=== PATIENT | female | born 1955 | race Caucasian/White ===

== ENCOUNTER 2024-06-08 15:09 | Observation (INO) | payer MEDICARE ==
[2024-06-08 15:42] LABS: Absolute Neutrophil Ct (ANC) 5.22 x10^3/uL (1.56-6.13); BASOPHIL % 0.7 % (0.1-1.2); Basophil (Absolute #) 0.06 x10^3/uL (0.01-0.08); Eosinophil % 4.4 % (0.7-5.8); Hematocrit 41.1 % (34.1-44.9); Hemoglobin 13.5 g/dL (11.2-15.7); IMMATURE GRAN # 0.02 x10^3u/L (0.001-0.031); IMMATURE GRAN % 0.2 % (0.001-0.429); Lymphocytes % 30.5 % (19.3-51.7); Mean Cell Volume 92.4 fL (79.4-94.8); Mean Corpuscular Hemoglobin 30.3 pg (25.6-32.2); Mean Corpuscular Hgb Concent. 32.8 g/dL (32.2-35.5); Mean Platelet Volume 10.1 fL (9.4-12.3); Monocyte (Absolute #) 0.67 x10^3/uL (0.24-0.86); Monocytes % 7.3 % (4.7-12.5); Neutrophil % 56.9 % (34.0-71.1); Platelet Count 252 x10^3/uL (182-369); Red Blood Count 4.45 x10^6/uL (3.93-5.22); Red Cell Distribution Width 12.3 % (11.7-14.4); White Blood Count 9.2 x10^3/uL (3.98-10.04)
[2024-06-08 16:11] LABS: ALBUMIN 4.1 g/dL (3.5-5.0); ANION GAP 15.1 MEQ/L (5-15); BILIRUBIN,TOTAL 0.5 mg/dL (0.2-1.3); Calcium 9.4 mg/dL (8.4-10.2); Creatinine 1 0.96 mg/dL (0.52-1.04); EST GLOMERULAR FILTRATION RATE 63.7 ML/MIN; NT PRO BNPII 90.4 pg/mL (<300); Potassium 4.1 mmol/L (3.5-5.1); Total Protein 6.9 g/dL (6.3-8.2)
--- NOTE | 2024-06-08 16:25 | XRAY ---
Indication: Chest pain. Comparison: None Portable chest hyperinflated with minimal left base subsegmental atelectasis/scarring. Remaining lungs clear. Heart not enlarged with tortuous descending aorta. Bony thorax intact with osteopenia, mild degenerative changes, and old right humeral neck fracture. Impression: Nonacute chest with chronic features.
--- NOTE | 2024-06-08 17:50 | ERPHSYRPT ---
- History of Present Illness Time Seen by Provider: 06/08/24 15:12 Historian: patient, EMS, [facility] records Exam Limitations: no limitations Patient Subjective Stated Complaint: Pt c/o of left sided chest pain that radiated down her left arm with N&V and diaphoresis Triage Nursing Assessment: fPt brought to the ER by EMS, vitals wnl, rates chest pain as 5/10, pulses normal, skin n/w/d, fills mildly short of breath, chest pain better with nitro and aspirin, doesn't appear to be in any distress Physician History: 68 years old female resident of [facility] with history of Parkinson's disease, hypertension, hyperlipidemia, hypothyroidism, diabetes mellitus presented in the ER with complains of substernal/left-sided chest pain since morning. Patient reported it was 8/10 intensity earlier, was given aspirin and nitro by EMS and started to improve. Currently having minimal pain. Patient denies any difficulty breathing. No fever or chills reported. Denies any history of previous stenting. Denies any lower extremity swellings Allergies/Adverse Reactions: Sulfa (Sulfonamide Antibiotics) Allergy (Verified 06/08/24 15:15) Home Medications: Amlodipine Besylate 5 mg [Norvasc 5 mg] 5 mg PO DAILY 06/08/24 [History] Aspirin 81 mg PO DAILY 06/08/24 [History] Atorvastatin Calcium 40 mg PO DAILY 06/08/24 [History] Carbidopa/Levodopa [Carbidopa-Levo ER 25-100 Tab] 2 tab PO TID 06/08/24 [History] Carvedilol 3.125 mg [Coreg 3.125 MG] 3.125 mg PO BID 06/08/24 [History] Cholecalciferol (Vitamin D3) [Vitamin D3] 125 mcg PO DAILY 06/08/24 [History] Cyanocobalamin 500 Mcg [Vitamin B-12 500 MCG] 1,000 mcg PO DAILY 06/08/24 [History] Diclofenac Sodium [Diclofenac Sodium ER] 100 mg PO DAILY 06/08/24 [History] Diphenhydramine HCl [Allergy Medication] 25 mg PO DAILY 06/08/24 [History] Docusate Sodium 100 mg [Docusate Sodium 100 MG] 100 mg PO BID 06/08/24 [History] Escitalopram Oxalate [Lexapro] 10 mg PO DAILY 06/08/24 [History] Fluticasone Propion/Salmeterol [Fluticasone-Salmeterol 250-50] 1 inh PO DAILY 06/08/24 [History] Insulin Glargine [Lantus Insulin] 17 unit SQ HS 06/08/24 [History] Insulin Lispro [Admelog Solostar] 0 units SQ AC 06/08/24 [History] Insulin Lispro [Admelog Solostar] 5 units SQ AC 06/08/24 [History] Levothyroxine Sodium 100 Mcg [Synthroid 100 Mcg] 100 mcg PO DAILY 06/08/24 [History] Losartan Potassium 100 mg PO DAILY 06/08/24 [History] Melatonin 3 mg PO HS 06/08/24 [History] Memantine HCl 5 mg PO DAILY 06/08/24 [History] Nystatin Powder 15 gm [Nystop Powder 15 gm] 0 gm TOP BID 06/08/24 [History] Oxaprozin 600 mg PO UD 06/08/24 [History] PANTOPRAZOLE 40 mg Tablet [Protonix 40MG Tablet] 40 mg PO QAM 06/08/24 [History] Vibegron [Gemtesa] 75 mg PO DAILY 06/08/24 [History] Hx Influenza Vaccination/Date Given: Yes Hx Pneumococcal Vaccination/Date Given: Yes Travel Risk - International Travel Have you traveled outside of the country in past 3 weeks: No - Emerging Infectious Disease Are you exhibiting symptoms associated with any current EIDs: No - Review of Systems Constitutional: No Symptoms Ears, Nose, & Throat: No Symptoms Respiratory: No Symptoms Cardiac: Chest Pain Abdominal/Gastrointestinal: No Symptoms Musculoskeletal: Arthralgias Skin: No Symptoms Neurological: No Symptoms Hematologic/Lymphatic: No Symptoms Immunological/Allergic: No Symptoms - Past Medical History Pertinent Past Medical History: Yes Cardiac History: High Cholesterol Endocrine Medical History: Diabetes Type II, Hypothyroidism GI Medical History: GERD Psycho-Social History: Anxiety Other Medical History: PARKINSONS - Past Surgical History Past Surgical History: Yes Gastrointestinal: Cholecystectomy Female Surgical History: Section - Social History Smoking Status: Former smoker Exposure to second hand smoke: No Drug Use: none - Social Determinants of Health Will the patient participate in the screening: Yes Do you worry about a steady place to live?: No Do you have any problems with any of the following?: No known problems In the past 12 months,have you had to go without utilities?: No Transportation Issues: No Has anyone in your support network made you feel unsafe?: No Have you or anyone in your house had to go w/o enough food: No - Nursing Vital Signs Nursing Vital Signs: Initial Vital Signs Temperature 98.3 F 06/08/24 15:18 Pulse Rate 70 06/08/24 15:18 Respiratory Rate 17 06/08/24 15:18 Blood Pressure 132/80 06/08/24 15:18 O2 Sat by Pulse Oximetry 95 06/08/24 15:18 Pain Scale Pain Intensity 0 - Physical Exam General Appearance: no apparent distress Eye Exam: PERRL/EOMI Ears, Nose, Throat Exam: normal ENT inspection Neck Exam: normal inspection, full range of motion Respiratory Exam: normal breath sounds, lungs clear Cardiovascular Exam: regular rate/rhythm, normal heart sounds Gastrointestinal/Abdomen Exam: soft, normal bowel sounds, No tenderness Extremity Exam: normal inspection, normal range of motion Neurologic Exam: alert, oriented x 3, cooperative Skin Exam: normal color SpO2 Interpretation: normal SpO2: 96 O2 Delivery: Room Air Ordered Tests: Active Orders 24 hr Category Date Time Status Patrol Inspector STAT Care 06/08/24 15:22 Active EKG-ER Only STAT Care 06/08/24 15:21 Active IV Insertion STAT Care 06/08/24 15:21 Active Pulse Oximetry (ED) STAT Care 06/08/24 15:21 Active CHEST 1 VIEW (PORTABLE) Stat Exams 06/08/24 15:21 Completed CBC W DIFF Stat Lab 06/08/24 15:42 Completed CMP Stat Lab 06/08/24 15:42 Completed NT PRO BNPII Stat Lab 06/08/24 15:42 Completed TROPONIN Q4H Lab 06/08/24 15:42 Completed TROPONIN Q4H Lab 06/08/24 19:30 Ordered TROPONIN Q4H Lab 06/08/24 23:30 Ordered Transfer Order Routine Transfer 06/08/24 Ordered Lab/Rad Data: Laboratory Result Diagrams 06/08/24 15:42 06/08/24 15:42 Laboratory Results 02/20/25 02/20/25 02/20/25 Range/Units 15:42 15:42 15:42 WBC 9.2 (3.98-10.04) x10^3/uL RBC 4.45 (3.93-5.22) x10^6/uL Hgb 13.5 (11.2-15.7) g/dL Hct 41.1 (34.1-44.9) % MCV 92.4 (79.4-94.8) fL MCH 30.3 (25.6-32.2) pg MCHC 32.8 (32.2-35.5) g/dL RDW 12.3 (11.7-14.4) % Plt Count 252 (182-369) x10^3/uL MPV 10.1 (9.4-12.3) fL Gran % 56.9 (34.0-71.1) % Immature Gran % (Auto) 0.2 (0.001-0.429) % Nucleat RBC Rel Count 0.0 (0.00-0.2) % Eos # (Auto) 0.40 H (0.04-0.36) x10^3/uL Immature Gran # (Auto) 0.02 (0.001-0.031) x10^3u/L Absolute Lymphs (auto) 2.80 (1.18-3.74) x10^3/uL Absolute Monos (auto) 0.67 (0.24-0.86) x10^3/uL Absolute Nucleated RBC 0.00 (0.00-0.012) x10^3u/L Lymphocytes % 30.5 (19.3-51.7) % Monocytes % 7.3 (4.7-12.5) % Eosinophils % 4.4 (0.7-5.8) % Basophils % 0.7 (0.1-1.2) % Absolute Granulocytes 5.22 (1.56-6.13) x10^3/uL Basophils # 0.06 (0.01-0.08) x10^3/uL Sodium 142 (135-145) mmol/L Potassium 4.1 (3.5-5.1) mmol/L Chloride 104 (98-107) mmol/L Carbon Dioxide 27 (22-30) mmol/L Anion Gap 15.1 H (5-15) MEQ/L BUN 18 H (7-17) mg/dL Creatinine 0.96 (0.52-1.04) mg/dL Estimated GFR 63.7 ML/MIN Glucose 138 H (74-106) mg/dL Calcium 9.4 (8.4-10.2) mg/dL Total Bilirubin 0.50 (0.2-1.3) mg/dL AST 21 (14-36) U/L ALT 8 (0-35) U/L Alkaline Phosphatase 71 (38-126) U/L Troponin I < 0.012 (0.000-0.033) ng/mL NT-Pro-B Natriuret Pep 90.4 (<300) pg/mL Serum Total Protein 6.9 (6.3-8.2) g/dL Albumin 4.1 (3.5-5.0) g/dL - Progress Progress: improved Air Movement: good Progress Note: 06/08/24 17:49 68 years old is evaluated in the ER for substernal/left-sided chest pain which is better after nitro and aspirin. EKG is no acute ischemic changes. Initial troponins are negative. Chest x-ray negative for any acute cardiopulmonary findings. Normal white count and fairly unremarkable chemistries. Patient has no cardiac workup done in the recent past, has multiple risk factors for CAD, discussed with Dr. Barrios and patient is being admitted. I have shared the results of workup with patient and recommended observation admission which she agreed. Complexity of problems addressed: High Amount/complexity of data to be reviewed and analyzed: Moderate. Risk of complication morbidity or mortality of patient management: High risk. Blood Culture(s) Obtained: No Antibiotics given: No Discussed with Dr.: Other (Dr. Barrios) Will see patient in: hospital (observation) Counseled pt/family regarding: lab results, diagnosis, need for follow-up, rad results Medical Desision Making - Independent Historian Additional History obtained from: Prison nurse, Hand Clerical Verifier/EMT - Discussion of managment Care discussed with:: hospitalist (Dr. Barrios) Reviewed:: Test results Agreed on:: Treatment plan, place in obs Will see patient: in hospital - Diagnostic Testing Diagnostic test were ordered, analyzed, and reviewed by me: Yes Radiological Interpretation: Reviewed by me - Risk of complications The pt has a mod risk of morbidity or mortality based on: Need for prescription drug management The pt has a high risk of morbidity or mortality based on: Decision regarding hospitilization or escalation of hosp level of care - Departure Departure Disposition: Home Clinical Impression: Chest pain, rule out acute myocardial infarction Condition: Stable Critical Care Time: No Referrals: SAILAJA CABRERA, [Primary Care Provider] - Follow up/PCP as directed
[2024-06-08] MEDS ORDERED: TYLENOL 325 MG PO PRN (20:01)
[2024-06-08] MEDS ORDERED: HUMALOG SQ PRN (20:01)
[2024-06-08] MEDS ORDERED: Nitrostat 0.4 MG Tablet SL PRN (20:28)
--- NOTE | 2024-06-08 20:37 | PCM.HP ---
History of Present Illness - Chief Complaint Chief Complaint: chest pain Date: 06/08/24 History of Present Illness: 68-year-old woman with a history of hypertension, diabetes, COPD, hypothyroidism, and Parkinson disease, who presents with chest tightness. Patient describes 1 week of episodes of substernal chest heaviness, radiating to the left side, associated with nausea and dyspnea, lasting about 30 minutes, moderate in intensity, provoked by stress. Usually resolve spontaneously or with rest. No change with exertion. No associated diaphoresis or numbness. The episodes have been occurring about 2-3 times per day, but earlier today she had a very stressful discussion with a family member causing her a lot of anxiety, and she began to have more frequent episodes. As such, she came to the ED today. On arrival, she initially was having some of this chest heaviness, but it resolved spontaneously, and she is symptom-free currently. Denies any prior episodes of similar chest pain or any cardiac disease history. She notes she had a cardiac catheterization many years ago that did not find anything, but she does not recall what prompted them to do the heart cath in the first place. She is a non-smoker. She has a family history in both parents of coronary disease, but at an advanced age. - Review of Systems All Other Systems: Reviewed and Negative Medications & Allergies Home Medications: Home Medication List Amlodipine Besylate 5 mg [Norvasc 5 mg] 5 mg PO DAILY 06/08/24 [History Confirmed 06/08/24] Aspirin 81 mg PO DAILY 06/08/24 [History Confirmed 06/08/24] Atorvastatin Calcium 40 mg PO DAILY 06/08/24 [History Confirmed 06/08/24] Carbidopa/Levodopa [Carbidopa-Levo ER 25-100 Tab] 2 tab PO TID 06/08/24 [History Confirmed 06/08/24] Carvedilol 3.125 mg [Coreg 3.125 MG] 3.125 mg PO BID 06/08/24 [History Confirmed 06/08/24] Cholecalciferol (Vitamin D3) [Vitamin D3] 125 mcg PO DAILY 06/08/24 [History Confirmed 06/08/24] Cyanocobalamin 500 Mcg [Vitamin B-12 500 MCG] 1,000 mcg PO DAILY 06/08/24 [History Confirmed 06/08/24] Diclofenac Sodium [Diclofenac Sodium ER] 100 mg PO DAILY 06/08/24 [History Confirmed 06/08/24] Diphenhydramine HCl [Allergy Medication] 25 mg PO DAILY 06/08/24 [History Confirmed 06/08/24] Docusate Sodium 100 mg [Docusate Sodium 100 MG] 100 mg PO BID 06/08/24 [History Confirmed 06/08/24] Escitalopram Oxalate [Lexapro] 10 mg PO DAILY 06/08/24 [History Confirmed 06/08/24] Fluticasone Propion/Salmeterol [Fluticasone-Salmeterol 250-50] 1 inh PO DAILY 06/08/24 [History Confirmed 06/08/24] Insulin Glargine [Lantus Insulin] 17 unit SQ HS 06/08/24 [History Confirmed 06/08/24] Insulin Lispro [Admelog Solostar] 0 units SQ AC 06/08/24 [History Confirmed 06/08/24] Insulin Lispro [Admelog Solostar] 5 units SQ AC 06/08/24 [History Confirmed 06/08/24] Levothyroxine Sodium 100 Mcg [Synthroid 100 Mcg] 100 mcg PO DAILY 06/08/24 [History Confirmed 06/08/24] Losartan Potassium 100 mg PO DAILY 06/08/24 [History Confirmed 06/08/24] Melatonin 3 mg PO HS 06/08/24 [History Confirmed 06/08/24] Memantine HCl 5 mg PO DAILY 06/08/24 [History Confirmed 06/08/24] Nystatin Powder 15 gm [Nystop Powder 15 gm] 0 gm TOP BID 06/08/24 [History Confirmed 06/08/24] Oxaprozin 600 mg PO UD 06/08/24 [History Confirmed 06/08/24] PANTOPRAZOLE 40 mg Tablet [Protonix 40MG Tablet] 40 mg PO QAM 06/08/24 [History Confirmed 06/08/24] Vibegron [Gemtesa] 75 mg PO DAILY 06/08/24 [History Confirmed 06/08/24] Allergies/Adverse Reactions: Allergies Allergy/AdvReac Type Severity Reaction Status Date / Time Sulfa (Sulfonamide Allergy Verified 06/08/24 15:15 Antibiotics) - Past Medical History Past Medical History: Yes Cardiac History: High Cholesterol, Hypertension Endocrine Medical History: Diabetes Type II, Hypothyroidism GI Medical History: GERD Pyscho-Social History: Anxiety Comment: PARKINSONS - Past Surgical History Past Surgical History: Yes GI Surgical History: Cholecystectomy Female Surgical History: Section Significant Family History: heart disease (at advanced age, in both parents) - Social History Smoking Status: Former smoker Exposure to second hand smoke: No Alcohol: Occasionally Drug Use: none - Social Determinants of Health Will the patient participate in the screening: Yes Do you worry about a steady place to live?: No Do you have any problems with any of the following?: No known problems In the past 12 months,have you had to go without utilities?: No Have you or anyone in your house had to go without enough: No Transportation Issues: No Has anyone in your support network made you feel unsafe?: No - Physical Exam Vital Signs: Vital Signs - 24 hr Temp Pulse Resp BP BP Pulse Ox 06/08/24 20:00 97.7 F 68 18 159/83 94 L 06/08/24 19:15 69 16 166/95 94 L 06/08/24 19:00 71 14 170/122 96 06/08/24 18:45 75 19 171/105 94 L 06/08/24 18:30 73 18 148/100 92 L 06/08/24 18:15 73 17 156/94 93 L 06/08/24 18:08 96 06/08/24 18:00 72 18 159/95 93 L 06/08/24 17:45 70 15 152/93 93 L 06/08/24 17:30 74 20 172/92 93 L 06/08/24 17:15 72 14 145/88 96 06/08/24 17:00 68 14 145/90 93 L 06/08/24 16:45 72 14 150/94 93 L 06/08/24 16:30 75 19 148/95 95 06/08/24 16:15 77 18 149/89 94 L 06/08/24 16:00 76 17 152/91 95 06/08/24 15:25 94 L 06/08/24 15:18 98.3 F 70 17 132/80 95 Physical Exam GEN: Sitting up in bed in no acute distress. HENT: Normocephalic, atraumatic. Moist mucous membranes. EYES: Normal inspection, anicteric sclera, extraocular movements intact. NECK: Supple, full range of motion CV: Regular rate and rhythm, no murmurs, no gallops. No JVD or edema. PULM: Clear to auscultation bilaterally, no work of breathing. On room air. ABD: Nondistended, nontender. MSK: No joint effusions, full range of motion SKIN: No rashes, normal color. NEURO: Face symmetric, no focal motor or sensory deficits. PSYCH: Alert, oriented x 3 Results - Labs Lab/Micro Results: Lab Results-Last 24 Hours 06/08/24 06/08/24 06/08/24 Range/Units 15:42 15:42 15:42 WBC 9.2 (3.98-10.04) x10^3/uL RBC 4.45 (3.93-5.22) x10^6/uL Hgb 13.5 (11.2-15.7) g/dL Hct 41.1 (34.1-44.9) % MCV 92.4 (79.4-94.8) fL MCH 30.3 (25.6-32.2) pg MCHC 32.8 (32.2-35.5) g/dL RDW 12.3 (11.7-14.4) % Plt Count 252 (182-369) x10^3/uL MPV 10.1 (9.4-12.3) fL Gran % 56.9 (34.0-71.1) % Immature Gran % (Auto) 0.2 (0.001-0.429) % Nucleat RBC Rel Count 0.0 (0.00-0.2) % Eos # (Auto) 0.40 H (0.04-0.36) x10^3/uL Immature Gran # (Auto) 0.02 (0.001-0.031) x10^3u/L Absolute Lymphs (auto) 2.80 (1.18-3.74) x10^3/uL Absolute Monos (auto) 0.67 (0.24-0.86) x10^3/uL Absolute Nucleated RBC 0.00 (0.00-0.012) x10^3u/L Lymphocytes % 30.5 (19.3-51.7) % Monocytes % 7.3 (4.7-12.5) % Eosinophils % 4.4 (0.7-5.8) % Basophils % 0.7 (0.1-1.2) % Absolute Granulocytes 5.22 (1.56-6.13) x10^3/uL Basophils # 0.06 (0.01-0.08) x10^3/uL Sodium 142 (135-145) mmol/L Potassium 4.1 (3.5-5.1) mmol/L Chloride 104 (98-107) mmol/L Carbon Dioxide 27 (22-30) mmol/L Anion Gap 15.1 H (5-15) MEQ/L BUN 18 H (7-17) mg/dL Creatinine 0.96 (0.52-1.04) mg/dL Estimated GFR 63.7 ML/MIN Glucose 138 H (74-106) mg/dL Calcium 9.4 (8.4-10.2) mg/dL Total Bilirubin 0.50 (0.2-1.3) mg/dL AST 21 (14-36) U/L ALT 8 (0-35) U/L Alkaline Phosphatase 71 (38-126) U/L Troponin I < 0.012 (0.000-0.033) ng/mL NT-Pro-B Natriuret Pep 90.4 (<300) pg/mL Serum Total Protein 6.9 (6.3-8.2) g/dL Albumin 4.1 (3.5-5.0) g/dL 06/08/24 Range/Units 19:30 WBC (3.98-10.04) x10^3/uL RBC (3.93-5.22) x10^6/uL Hgb (11.2-15.7) g/dL Hct (34.1-44.9) % MCV (79.4-94.8) fL MCH (25.6-32.2) pg MCHC (32.2-35.5) g/dL RDW (11.7-14.4) % Plt Count (182-369) x10^3/uL MPV (9.4-12.3) fL Gran % (34.0-71.1) % Immature Gran % (Auto) (0.001-0.429) % Nucleat RBC Rel Count (0.00-0.2) % Eos # (Auto) (0.04-0.36) x10^3/uL Immature Gran # (Auto) (0.001-0.031) x10^3u/L Absolute Lymphs (auto) (1.18-3.74) x10^3/uL Absolute Monos (auto) (0.24-0.86) x10^3/uL Absolute Nucleated RBC (0.00-0.012) x10^3u/L Lymphocytes % (19.3-51.7) % Monocytes % (4.7-12.5) % Eosinophils % (0.7-5.8) % Basophils % (0.1-1.2) % Absolute Granulocytes (1.56-6.13) x10^3/uL Basophils # (0.01-0.08) x10^3/uL Sodium (135-145) mmol/L Potassium (3.5-5.1) mmol/L Chloride (98-107) mmol/L Carbon Dioxide (22-30) mmol/L Anion Gap (5-15) MEQ/L BUN (7-17) mg/dL Creatinine (0.52-1.04) mg/dL Estimated GFR ML/MIN Glucose (74-106) mg/dL Calcium (8.4-10.2) mg/dL Total Bilirubin (0.2-1.3) mg/dL AST (14-36) U/L ALT (0-35) U/L Alkaline Phosphatase (38-126) U/L Troponin I < 0.012 (0.000-0.033) ng/mL NT-Pro-B Natriuret Pep (<300) pg/mL Serum Total Protein (6.3-8.2) g/dL Albumin (3.5-5.0) g/dL - Radiology Impressions Radiology Exams & Impressions: Radiology Procedures Category Date Time Status CHEST 1 VIEW (PORTABLE) Stat Exams 06/08/24 15:21 Completed Chest x-ray no acute process, does have some mild scarring versus atelectasis at the left base. (Images reviewed) Assessment/Plan (1) Chest pain, rule out acute myocardial infarction Current Visit: Yes Status: Acute Assessment & Plan: 68-year-old woman with a history of diabetes, hypertension, COPD, hypothyroidism , and Parkinson disease, here with episodic chest heaviness. ## Substernal chest pain atypical, as not provoked by exertion or relieved by rest. However, has been increasing in frequency over the last week, and is at least worsened by emotional stress. Initial EKG and troponins are unrevealing. Patient's risk factors are mainly her comorbidities as well as advanced age. Place in observation and monitor on telemetry overnight Serial troponins PRN nitroglycerin If troponins remain negative and no further telemetry, will arrange for outpatient stress testing Continue home aspirin 81 mg, atorvastatin 40 ## Type 2 diabetes on insulin at home. Continue home Lantus 17 units QHS and lispro 5 units AC Placed on moderate dose sliding scale insulin Check hemoglobin A1c ## Hypertension blood pressure elevated, but in the setting of acute pain. Resume home regimen of carvedilol 3.125 BID, amlodipine 5 daily, and losartan 100 mg daily Will need to follow-up with PCP for repeat ambulatory blood pressure evaluation to see if an increase in dosing would be warranted when patient is in her baseline state ## Chronic stable problems Hypothyroidism continue home levothyroxine 100 mcg daily Parkinson disease continue home Sinemet 2 tabs TID Dementia continue memantine 5 mg daily Overactive bladder continue home oxaprozin 600 mg daily GERD continue home Protonix 40 mg daily Insomnia continue melatonin 3 mg QHS Anxiety continue Lexapro 10 mg daily CODE STATUS: Full code Diet: Diabetic Prophylaxis: Low risk, short observation stay patient, encourage ambulation Dispo: Place in observation, expect discharge to home tomorrow Entirety of encounter took place via live audio/video telemedicine device, with remote physician and patient in hospital, with the assistance of bedside nurse. Code(s): R07.9 - CHEST PAIN, UNSPECIFIED Telemedicine Encounter - Telemedicine Encounter Telemedicine Encounter: "The entirety of this encounter was performed via Telemedicine" This visit was performed using real-time audio and video connection between my location and thepatients locationwith the assistance of a surrogateat the patients location. Written or verbal consent was obtained from the patient/guardian to perform [facility]. Any patient questions regarding the telemedicine interaction were answered.
[2024-06-08] MEDS ORDERED: NON-FORMULARY ITEM (Carbidopa/Levodopa [Carbidopa-Levo Er 25-100 Tab] 1 EACH Tablet.Er) PO SCH (22:00)
[2024-06-08] MEDS: Advair Hfa 115/21 Common canister IH SCH (22:22)
[2024-06-08] MEDS: Lantus Insulin SQ SCH (22:53)
[2024-06-08] MEDS: Docusate Sodium 100 MG PO SCH (22:54)
[2024-06-08] MEDS: Coreg 3.125 MG PO SCH (22:54)
[2024-06-08] MEDS: Sinemet CR 50/200 MG PO SCH (22:54)
[2024-06-08] MEDS: MELATONIN PO SCH (22:54)
[2024-06-08 23:51] LABS: PREALBUMIN 20.84 mg/dL (17.6-36.0); TROPONIN < 0.012 ng/mL (0.000-0.033)
[2024-06-09 05:01] LABS: Hematocrit 40.8 % (34.1-44.9); Hemoglobin 13.4 g/dL (11.2-15.7); Mean Cell Volume 92.9 fL (79.4-94.8); Mean Corpuscular Hemoglobin 30.5 pg (25.6-32.2); Mean Corpuscular Hgb Concent. 32.8 g/dL (32.2-35.5); Mean Platelet Volume 10.1 fL (9.4-12.3); Platelet Count 239 x10^3/uL (182-369); Red Blood Count 4.39 x10^6/uL (3.93-5.22); Red Cell Distribution Width 12.4 % (11.7-14.4); White Blood Count 9.3 x10^3/uL (3.98-10.04)
[2024-06-09 05:37] LABS: ANION GAP 15.9 MEQ/L (5-15); Creatinine 1 0.69 mg/dL (0.52-1.04); EST GLOMERULAR FILTRATION RATE 93.3 ML/MIN
[2024-06-09] MEDS ORDERED: MEDICATION INTERVENTION MC SCH (07:00)
[2024-06-09] MEDS ORDERED: NON-FORMULARY ITEM (Insulin Lispro [Admelog Solostar] 100 UNIT/ML Insuln.Pen) SQ SCH (07:30)
[2024-06-09 08:37] VITALS: RESP 18; O2SAT 93
[2024-06-09] MEDS: VITAMIN D PO SCH (09:38)
[2024-06-09] MEDS: ECOTRIN 81 MG PO SCH (09:38)
[2024-06-09] MEDS: SYNTHROID 100 MCG PO SCH (09:38)
[2024-06-09] MEDS: Lexapro PO SCH (09:38)
[2024-06-09] MEDS: Cozaar 50 MG PO SCH (09:38)
[2024-06-09] MEDS: ZOCOR 20MG PO SCH (09:38)
[2024-06-09] MEDS: Namenda 5 MG PO SCH (09:39)
[2024-06-09] MEDS: NORVASC 5 MG PO SCH (09:39)
[2024-06-09] MEDS: Protonix 40MG Tablet PO SCH (09:39)
[2024-06-09] MEDS: HUMALOG SQ SCH (09:39)
[2024-06-09] MEDS: VOLTAREN 50 MG PO SCH (09:40)
--- NOTE | 2024-06-09 09:47 | PCM.DS ---
Discharge Summary Date of Admission: 06/08/24 19:58 Date of Discharge: 06/09/24 Admitting Physician: BECKI DE LA ROSA MD Primary Care Provider: SAILAJA CABRERA DO Allergies Allergies Sulfa (Sulfonamide Antibiotics) Allergy (Verified 06/08/24 15:15) Hospital Summary - Hospital Course Hospital Course: 68-year-old woman with a history of hypertension, diabetes, COPD, hypothyroidism, and Parkinson disease, who presents with chest tightness. Patient describes 1 week of episodes of substernal chest heaviness, radiating to the left side, associated with nausea and dyspnea, lasting about 30 minutes, moderate in intensity, provoked by stress. Usually resolve spontaneously or with rest. No change with exertion. No associated diaphoresis or numbness. The episodes have been occurring about 2-3 times per day, but on 06/08/24 she had a very stressful discussion with a family member causing her a lot of anxiety, and she began to have more frequent episodes. As such, she came to the ED. On arrival, she initially was having some of this chest heaviness, but it resolved spontaneously, and she is symptom-free currently. Denies any prior episodes of similar chest pain or any cardiac disease history. She notes she had a cardiac catheterization many years ago that did not find anything, but she does not recall what prompted them to do the heart cath in the first place. She is a non- smoker. She has a family history in both parents of coronary disease, but at an advanced age. Today she denies any CP. Trop X3 negative. Will have pt f/u OP with cardiology. She denies any further concerns at this time and will return to [facility]. - Vitals & Intake/Output Vital Signs: Vital Signs Temperature 97.5 F 06/09/24 08:00 Pulse Rate 72 06/09/24 08:00 Respiratory Rate 18 06/09/24 08:00 Blood Pressure 152/83 06/09/24 08:00 O2 Sat by Pulse Oximetry 93 L 06/09/24 08:00 Intake & Output: Intake & Output 06/06/24 06/07/24 06/08/24 06/09/24 11:59 11:59 11:59 11:59 Intake Total 600 Balance 600 Weight 70 kg - Lab Result Diagrams: 06/09/24 04:56 06/09/24 04:56 Lab Results-Last 24 Hrs: Lab Results-Last 24 Hours 06/08/24 06/08/24 06/08/24 Range/Units 15:42 15:42 15:42 WBC 9.2 (3.98-10.04) x10^3/uL RBC 4.45 (3.93-5.22) x10^6/uL Hgb 13.5 (11.2-15.7) g/dL Hct 41.1 (34.1-44.9) % MCV 92.4 (79.4-94.8) fL MCH 30.3 (25.6-32.2) pg MCHC 32.8 (32.2-35.5) g/dL RDW 12.3 (11.7-14.4) % Plt Count 252 (182-369) x10^3/uL MPV 10.1 (9.4-12.3) fL Gran % 56.9 (34.0-71.1) % Immature Gran % (Auto) 0.2 (0.001-0.429) % Nucleat RBC Rel Count 0.0 (0.00-0.2) % Eos # (Auto) 0.40 H (0.04-0.36) x10^3/uL Immature Gran # (Auto) 0.02 (0.001-0.031) x10^3u/L Absolute Lymphs (auto) 2.80 (1.18-3.74) x10^3/uL Absolute Monos (auto) 0.67 (0.24-0.86) x10^3/uL Absolute Nucleated RBC 0.00 (0.00-0.012) x10^3u/L Lymphocytes % 30.5 (19.3-51.7) % Monocytes % 7.3 (4.7-12.5) % Eosinophils % 4.4 (0.7-5.8) % Basophils % 0.7 (0.1-1.2) % Absolute Granulocytes 5.22 (1.56-6.13) x10^3/uL Basophils # 0.06 (0.01-0.08) x10^3/uL Sodium 142 (135-145) mmol/L Potassium 4.1 (3.5-5.1) mmol/L Chloride 104 (98-107) mmol/L Carbon Dioxide 27 (22-30) mmol/L Anion Gap 15.1 H (5-15) MEQ/L BUN 18 H (7-17) mg/dL Creatinine 0.96 (0.52-1.04) mg/dL Estimated GFR 63.7 ML/MIN Glucose 138 H (74-106) mg/dL POC Glucometer (74 to 106) mg/dL Hemoglobin A1c (4.5-6.0) % Calcium 9.4 (8.4-10.2) mg/dL Total Bilirubin 0.50 (0.2-1.3) mg/dL AST 21 (14-36) U/L ALT 8 (0-35) U/L Alkaline Phosphatase 71 (38-126) U/L Troponin I < 0.012 (0.000-0.033) ng/mL NT-Pro-B Natriuret Pep 90.4 (<300) pg/mL Serum Total Protein 6.9 (6.3-8.2) g/dL Albumin 4.1 (3.5-5.0) g/dL Prealbumin (17.6-36.0) mg/dL 06/08/24 06/08/24 06/08/24 Range/Units 19:30 23:20 23:23 WBC (3.98-10.04) x10^3/uL RBC (3.93-5.22) x10^6/uL Hgb (11.2-15.7) g/dL Hct (34.1-44.9) % MCV (79.4-94.8) fL MCH (25.6-32.2) pg MCHC (32.2-35.5) g/dL RDW (11.7-14.4) % Plt Count (182-369) x10^3/uL MPV (9.4-12.3) fL Gran % (34.0-71.1) % Immature Gran % (Auto) (0.001-0.429) % Nucleat RBC Rel Count (0.00-0.2) % Eos # (Auto) (0.04-0.36) x10^3/uL Immature Gran # (Auto) (0.001-0.031) x10^3u/L Absolute Lymphs (auto) (1.18-3.74) x10^3/uL Absolute Monos (auto) (0.24-0.86) x10^3/uL Absolute Nucleated RBC (0.00-0.012) x10^3u/L Lymphocytes % (19.3-51.7) % Monocytes % (4.7-12.5) % Eosinophils % (0.7-5.8) % Basophils % (0.1-1.2) % Absolute Granulocytes (1.56-6.13) x10^3/uL Basophils # (0.01-0.08) x10^3/uL Sodium (135-145) mmol/L Potassium (3.5-5.1) mmol/L Chloride (98-107) mmol/L Carbon Dioxide (22-30) mmol/L Anion Gap (5-15) MEQ/L BUN (7-17) mg/dL Creatinine (0.52-1.04) mg/dL Estimated GFR ML/MIN Glucose (74-106) mg/dL POC Glucometer 143 H (74 to 106) mg/dL Hemoglobin A1c (4.5-6.0) % Calcium (8.4-10.2) mg/dL Total Bilirubin (0.2-1.3) mg/dL AST (14-36) U/L ALT (0-35) U/L Alkaline Phosphatase (38-126) U/L Troponin I < 0.012 < 0.012 (0.000-0.033) ng/mL NT-Pro-B Natriuret Pep (<300) pg/mL Serum Total Protein (6.3-8.2) g/dL Albumin (3.5-5.0) g/dL Prealbumin 20.84 (17.6-36.0) mg/dL 06/09/24 06/09/24 06/09/24 Range/Units 04:56 04:56 04:56 WBC 9.3 (3.98-10.04) x10^3/uL RBC 4.39 (3.93-5.22) x10^6/uL Hgb 13.4 (11.2-15.7) g/dL Hct 40.8 (34.1-44.9) % MCV 92.9 (79.4-94.8) fL MCH 30.5 (25.6-32.2) pg MCHC 32.8 (32.2-35.5) g/dL RDW 12.4 (11.7-14.4) % Plt Count 239 (182-369) x10^3/uL MPV 10.1 (9.4-12.3) fL Gran % (34.0-71.1) % Immature Gran % (Auto) (0.001-0.429) % Nucleat RBC Rel Count (0.00-0.2) % Eos # (Auto) (0.04-0.36) x10^3/uL Immature Gran # (Auto) (0.001-0.031) x10^3u/L Absolute Lymphs (auto) (1.18-3.74) x10^3/uL Absolute Monos (auto) (0.24-0.86) x10^3/uL Absolute Nucleated RBC (0.00-0.012) x10^3u/L Lymphocytes % (19.3-51.7) % Monocytes % (4.7-12.5) % Eosinophils % (0.7-5.8) % Basophils % (0.1-1.2) % Absolute Granulocytes (1.56-6.13) x10^3/uL Basophils # (0.01-0.08) x10^3/uL Sodium 142 (135-145) mmol/L Potassium 4.0 (3.5-5.1) mmol/L Chloride 106 (98-107) mmol/L Carbon Dioxide 24 (22-30) mmol/L Anion Gap 15.9 H (5-15) MEQ/L BUN 18 H (7-17) mg/dL Creatinine 0.69 (0.52-1.04) mg/dL Estimated GFR 93.3 ML/MIN Glucose 134 H (74-106) mg/dL POC Glucometer (74 to 106) mg/dL Hemoglobin A1c 7.02 H (4.5-6.0) % Calcium 9.0 (8.4-10.2) mg/dL Total Bilirubin (0.2-1.3) mg/dL AST (14-36) U/L ALT (0-35) U/L Alkaline Phosphatase (38-126) U/L Troponin I (0.000-0.033) ng/mL NT-Pro-B Natriuret Pep (<300) pg/mL Serum Total Protein (6.3-8.2) g/dL Albumin (3.5-5.0) g/dL Prealbumin (17.6-36.0) mg/dL 06/09/24 Range/Units 07:08 WBC (3.98-10.04) x10^3/uL RBC (3.93-5.22) x10^6/uL Hgb (11.2-15.7) g/dL Hct (34.1-44.9) % MCV (79.4-94.8) fL MCH (25.6-32.2) pg MCHC (32.2-35.5) g/dL RDW (11.7-14.4) % Plt Count (182-369) x10^3/uL MPV (9.4-12.3) fL Gran % (34.0-71.1) % Immature Gran % (Auto) (0.001-0.429) % Nucleat RBC Rel Count (0.00-0.2) % Eos # (Auto) (0.04-0.36) x10^3/uL Immature Gran # (Auto) (0.001-0.031) x10^3u/L Absolute Lymphs (auto) (1.18-3.74) x10^3/uL Absolute Monos (auto) (0.24-0.86) x10^3/uL Absolute Nucleated RBC (0.00-0.012) x10^3u/L Lymphocytes % (19.3-51.7) % Monocytes % (4.7-12.5) % Eosinophils % (0.7-5.8) % Basophils % (0.1-1.2) % Absolute Granulocytes (1.56-6.13) x10^3/uL Basophils # (0.01-0.08) x10^3/uL Sodium (135-145) mmol/L Potassium (3.5-5.1) mmol/L Chloride (98-107) mmol/L Carbon Dioxide (22-30) mmol/L Anion Gap (5-15) MEQ/L BUN (7-17) mg/dL Creatinine (0.52-1.04) mg/dL Estimated GFR ML/MIN Glucose (74-106) mg/dL POC Glucometer 121 H (74 to 106) mg/dL Hemoglobin A1c (4.5-6.0) % Calcium (8.4-10.2) mg/dL Total Bilirubin (0.2-1.3) mg/dL AST (14-36) U/L ALT (0-35) U/L Alkaline Phosphatase (38-126) U/L Troponin I (0.000-0.033) ng/mL NT-Pro-B Natriuret Pep (<300) pg/mL Serum Total Protein (6.3-8.2) g/dL Albumin (3.5-5.0) g/dL Prealbumin (17.6-36.0) mg/dL Micro Results-Entire Visit: Accuchecks Date 06/09/24 - Radiology Exams Ordered Rad Exams-Entire Visit: Radiology Procedures Category Date Time Status CHEST 1 VIEW (PORTABLE) Stat Exams 06/08/24 15:21 Completed - Procedures and Test Procedures and Tests throughout Hospitalization: Therapy Orders & Screens 06/08/24 21:54 Respiratory Therapy Assessment DAILY Comment: Diagnosis: chest pain Discharge Exam General Appearance: no apparent distress, alert Neurologic Exam: alert, oriented x 3, cooperative, normal mood/affect, nml cerebellar function, sensation nml, No motor deficits Eye Exam: PERRL, EOMI, eyes nml inspection Ears, Nose, Throat Exam: normal ENT inspection, pharynx normal, moist mucous membranes Neck Exam: normal inspection, non-tender, supple, full range of motion Respiratory Exam: normal breath sounds, lungs clear, No respiratory distress Cardiovascular Exam: regular rate/rhythm, normal heart sounds Gastrointestinal/Abdomen Exam: soft, No tenderness, No mass Pelvic Exam: deferred Rectal Exam: deferred Back Exam: normal inspection, normal range of motion, No CVA tenderness, No vertebral tenderness Extremity Exam: normal inspection, normal range of motion Skin Exam: normal color, warm, dry Wound Assessment: Skin/Wound Assessment Wound/Incision Assessment Start: 06/08/24 21:19 Text: Status: Active Freq: Q6H Protocol: Document 06/09/24 02:00 MP (Rec: 06/09/24 06:56 MP [id number]) Wound Photo Photo Taken No Final Diagnosis/Problem List - Final Discharge Diagnosis/Problem (1) Chest pain Current Visit: Yes Status: Acute Assessment & Plan: - EKG - TROP x3 negative - CBC, CMP reviewed - Pt denies Pc today Continue home aspirin 81 mg, atorvastatin 40mg - Tele - F/U with cardiology OP Code(s): R07.9 - CHEST PAIN, UNSPECIFIED (2) Type II diabetes mellitus Current Visit: Yes Status: Chronic Assessment & Plan: Continue home Lantus 17 units QHS and lispro 5 units AC Placed on moderate dose sliding scale insulin Check hemoglobin A1c- 7.01- uncontrolled (3) HTN (hypertension) Current Visit: Yes Status: Chronic Assessment & Plan: Resume home regimen of carvedilol 3.125 BID, amlodipine 5 daily, and losartan 100 mg daily Will need to follow-up with PCP for repeat ambulatory blood pressure evaluation to see if an increase in dosing would be warranted when patient is in her baseline state Code(s): I10 - ESSENTIAL (PRIMARY) HYPERTENSION (4) Anxiety Current Visit: Yes Status: Chronic Assessment & Plan: - resume home med Code(s): F41.9 - ANXIETY DISORDER, UNSPECIFIED - Discharge Discharge Date: 06/09/24 ([facility]) Disposition: DC TO ANY "OTHER" SENIOR CARE Condition: Stable Prescriptions: Continue PANTOPRAZOLE 40 mg Tablet [Protonix 40MG Tablet] 40 mg PO QAM Nystatin Powder 15 gm [Nystop Powder 15 gm] 0 gm TOP BID Memantine HCl 5 mg PO DAILY Melatonin 3 mg PO HS Losartan Potassium 100 mg PO DAILY Levothyroxine Sodium 100 Mcg [Synthroid 100 Mcg] 100 mcg PO DAILY Escitalopram Oxalate [Lexapro] 10 mg PO DAILY Insulin Glargine [Lantus Insulin] 17 unit SQ HS Vibegron [Gemtesa] 75 mg PO DAILY Fluticasone Propion/Salmeterol [Fluticasone-Salmeterol 250-50] 1 inh PO DAILY Docusate Sodium 100 mg [Docusate Sodium 100 MG] 100 mg PO BID Diphenhydramine HCl [Allergy Medication] 25 mg PO DAILY Diclofenac Sodium [Diclofenac Sodium ER] 100 mg PO DAILY Cyanocobalamin 500 Mcg [Vitamin B-12 500 MCG] 1,000 mcg PO DAILY Cholecalciferol (Vitamin D3) [Vitamin D3] 125 mcg PO DAILY Carvedilol 3.125 mg [Coreg 3.125 MG] 3.125 mg PO BID Carbidopa/Levodopa [Carbidopa-Levo ER 25-100 Tab] 2 tab PO TID Atorvastatin Calcium 40 mg PO DAILY Insulin Lispro [Admelog Solostar] 0 units SQ AC Insulin Lispro [Admelog Solostar] 5 units SQ AC Aspirin 81 mg PO DAILY Amlodipine Besylate 5 mg [Norvasc 5 mg] 5 mg PO DAILY Oxaprozin 600 mg PO UD Follow up with: SAILAJA CABRERA DO [Primary Care Provider] - MARCI LARES MD [Family Provider] -
[2024-06-09] MEDS ORDERED: FLUTICASONE-SALMETEROL 250-50 IH SCH (10:00)
[2024-06-09] MEDS ORDERED: NON-FORMULARY ITEM (Cholecalciferol (Vitamin D3) [Vitamin D3] 125 MCG Capsule) PO SCH (10:00)
[2024-06-09] MEDS ORDERED: NON-FORMULARY ITEM (Vibegron [Gemtesa] 75 MG Tablet) PO SCH (10:00)
[2024-06-09] MEDS ORDERED: NON-FORMULARY ITEM (Losartan Potassium [Losartan Potassium] 100 MG Tablet) PO SCH (10:00)
[2024-06-09] MEDS ORDERED: LIPITOR 40MG PO SCH (10:00)
[2024-06-09] MEDS ORDERED: DICLOFENAC SODIUM 100 MG PO SCH (10:00)
[2024-06-09] MEDS ORDERED: BABY ASPIRIN 81 MG CHEW PO SCH (10:00)
[2024-06-09 11:35] VITALS: BP 136/61; PULSE 73; TEMP 97.7
[2024-06-09] MEDS ORDERED: Advair Hfa 115/21 Common canister IH SCH (22:00)
== END 2024-06-09 11:52 ==
LOC: ED 15:09 → MED SURG 19:58
PROVIDERS: ADMIT Internal Medicine; ATTEND Internal Medicine
DX: R07.9 Chest pain, unspecified (principal); I10 Essential (primary) hypertension; E11.9 Type 2 diabetes mellitus without complications; J44.9 Chronic obstructive pulmonary disease, unspecified; E03.9 Hypothyroidism, unspecified; G20.A1 Parkinson's disease without dyskinesia, without mention of fluctuations; F41.9 Anxiety disorder, unspecified; E78.5 Hyperlipidemia, unspecified; Z79.899 Other long term (current) drug therapy
CPT/HCPCS: 36415; 71045; 80048; 80053; 82947; 83036; 83880; 84134; 84484; 85025; 85027; 93005; 93041; 94640; 94760; 99285; Q3014; 93268; J1817; A9270-GY; G0378